=== PATIENT | male | born 1950 | race Caucasian/White ===

== ENCOUNTER 2016-10-02 14:38 | Emergency (ER) | payer OTHER ==
[~2016-10-02] VITALS: Ht 175.3 cm; Wt 94.0 kg
[~2016-10-02 14:38] MED LIST: AMOX1TAB10 PO; AMOX1TAB67 PO; AZIT250T94 PO; CIPR500T4 PO; GUAI118L22 PO; HYDR-3498 PO; HYDR-902 PO; IBUP800T25 PO; LOPE2CAP PO; METF500T4 PO; NAPR-260 PO; PEN500 PO; PRED20TA PO
[2016-10-02 14:41] VITALS: Ht 175.3 cm; Wt 94.0 kg
[2016-10-02] MEDS ORDERED: TRAM50TA2 PO (14:59)
[2016-10-02] MEDS ORDERED: IBUP-1542 PO (14:59)
--- NOTE | 2016-10-02 15:02 | ERD ---
ER Documentation Chief Complaint Date/Time DATE: 10/02/16 TIME: 15:01 Chief Complaint rt elbow pain x 3 weeks HPI 65-year-old male complains of right elbow pain for last 3 weeks. Started after lifting. He had minimal pain after the event but it has slowly progressed. Is on the medial aspect of his right elbow. There is no fevers, redness, restricted range of motion weakness per ROS All systems reviewed and are negative except as per history of present illness. Medications Home Meds Active Scripts Tramadol HCl (Tramadol HCl) 50 Mg Tablet, 50 MG PO Q4 Y for PAIN, #16 TAB Prov:INDRA MARTINEZ MD 10/02/16 Ibuprofen* (Motrin*) 600 Mg Tab, 600 MG PO Q6, #20 TAB Prov:INDRA MARTINEZ MD 10/02/16 Amoxicillin/Potassium Clav (Amox-Clav 875-125 mg Tablet) 875-125 mg Tab, 1 TAB PO BID for 7 Days, #14 TAB Prov:MARILYNN HIRSCH PA-C 12/29/15 Hydrocodone/Acetaminophen ([place] 10-325 Tablet) 1 Each Tablet, 1 TAB PO Q6H Y for PAIN, #12 TAB Prov:MARILYNN HIRSCH PA-C 12/29/15 Ibuprofen* (Motrin*) 800 Mg Tab, 800 MG PO Q6, #30 TAB Prov:MARILYNN HIRSCH PA-C 12/29/15 Ciprofloxacin Hcl* (Ciprofloxacin Hcl*) 500 Mg Tablet, 500 MG PO BID for 7 Days , TAB 0 Refills Prov:POLY AGUILAR PA-C 10/05/15 Loperamide Hcl* (Imodium*) 2 Mg Capsule, 2 MG PO .AFTER EA LOOSE BM Y for DIARRHEA for 5 Days, #10 TAB 0 Refills Prov:POLY AGUILAR PA-C 10/05/15 Amoxicillin-Clavulanate K* (Augmentin*) 500 Mg Tab, 500 MG PO BID for 7 Days, TAB Prov:TANJA RIVERA PA-C 06/25/15 Guaifenesin/Codeine Phosphate (CHERATUSSIN AC SYRUP) 118 Ml Liquid, 10 ML PO Q6H Y for COUGH, #118 ML Prov:CAREY MOLINA NP 06/14/15 Azithromycin* (Zithromax*) 250 Mg Tablet, 250 MG PO .MeryPACK DIRECTED, #6 TAB TAKE 500 MG (2 TABS) THE FIRST DAY THEN 250 MG (1 TAB) DAYS 2-5 Prov:GREGORIA PEREZ MD 06/07/15 Prednisone* (Prednisone*) 20 Mg Tab, 60 MG PO DAILY for 5 Days, TAB Prov:GREGORIA PEREZ MD 06/07/15 Ibuprofen* (Motrin*) 800 Mg Tab, 800 MG PO Q6, #30 TAB Prov:JOHN FERRO DO 04/22/15 Penicillin V Potassium* (Penicillin V K*) 500 Mg Tab, 500 MG PO QID for 10 Days , TAB Prov:JOHN FERRO DO 04/22/15 Hydrocodone Bit-Acetaminophen* ([place]*) 5-325 Mg Tab, 1 TAB PO Q6 Y for PAIN, # 10 TAB Prov:BRYAN HURD. 01/25/15 Naproxen* (Naprosyn*) 500 Mg Tablet, 500 MG PO BID Y for PAIN AND/OR INFLAMMATION, #20 TAB Prov:BRYAN HURD 01/25/15 Reported Medications Metformin Hcl* (Metformin Hcl*) 500 Mg Tablet, 500 MG PO WITH BREAKFAST, TAB 06/29/14 Allergies Allergies: Coded Allergies: No Known Allergy (Unverified , 12/29/15) PMhx/Soc Medical and Surgical Hx: pt denies Medical Hx History of Surgery: Yes (left wrist) Anesthesia Reaction: No Hx Neurological Disorder: No Hx Respiratory Disorders: No Hx Cardiac Disorders: No Hx Psychiatric Problems: No Hx Miscellaneous Medical Probl: No Hx Alcohol Use: No Hx Substance Use: No Hx Tobacco Use: No Smoking Status: Never smoker Physical Exam Vitals Vital Signs Date Time Temp Pulse Resp B/P Pulse Ox O2 Delivery O2 Flow Rate FiO2 10/02/16 14:41 98.1 67 18 164/84 98 Physical Exam Const: [] Alert, not ill-appearing. Head: Atraumatic Eyes: Normal Conjunctiva ENT: Normal External Ears, Nose and Mouth. Neck: Full range of motion..~ No meningismus. Resp: Clear to auscultation bilaterally Cardio: Regular rate and rhythm, no murmurs Abd: Soft, non tender, non distended. Normal bowel sounds Skin: No petechiae or rashes Back: No midline or flank tenderness Ext: No cyanosis, or edema. Tenderness on the medial epicondyle of the right elbow. No warmth, erythema or effusion. No deformities. Right upper extremity is neurovascular intact. Neur: Awake and alert Psych: Normal Mood and Affect Procedures/MDM Patient declines any x-ray as he feels it is not broken. He has signs and symptoms of likely tendinitis or strain or medial epicondylitis. Patient is placed in a right elbow Stanley bandage and will be treated with tramadol ibuprofen instructions for ice. He is advised to seek an orthopedist for persistent pain despite 1 week of treatment. Return sooner for worsening symptoms. Mechanism history and exam does not suggest fracture, osteomyelitis, septic arthritis, deficits. Departure Diagnosis: Primary Impression: Elbow pain Laterality: right Qualified Code: M25.521 - Right elbow pain Condition: Stable Patient Instructions: Sprain Elbow, Tendonitis Referrals: PASTOR BOLAÑOS MD Additional Instructions: Apply ice at home. Recheck for fevers, redness, new worsening symptoms. See orthopedist or primary doctor for persistent pain despite 1 week rest. INDRA MARTINEZ MD Oct 02, 2016 15:02
== END 2016-10-02 15:15 | disposition home or self-care (01) ==
LOC: FTE 14:38
DX: M25.521 Pain in right elbow (principal); Z79.84 Long term (current) use of oral hypoglycemic drugs
CPT/HCPCS: 99283

== ENCOUNTER 2017-04-24 08:50 | Emergency (ER) | END 2017-04-24 10:30 | disposition home or self-care (01) ==

== ENCOUNTER 2017-12-17 07:04 | Emergency (ER) | END 2017-12-17 08:45 | disposition home or self-care (01) ==

== ENCOUNTER 2018-02-11 07:53 | Emergency (ER) | END 2018-02-11 08:30 | disposition home or self-care (01) ==

== ENCOUNTER 2018-07-15 12:41 | Emergency (ER) | payer OTHER ==
[~2018-07-15] VITALS: Ht 170.2 cm; Wt 91.0 kg
[~2018-07-15 12:41] MED LIST changes: +AZIT250T PO; -AZIT250T94 PO; +CETI10CA PO; +CLIN300C10 PO; +FAMO-96 PO; +GUAI5SYR2 PO; +HYDR-3980 PO; +HYDR-4011 PO; -HYDR-902 PO; +IBUP-1542 PO; -IBUP800T25 PO; +IBUP800T48 PO; +METF500T24 PO; -METF500T4 PO; -NAPR-260 PO; +NAPR-985 PO; -PEN500 PO; +PENI500T PO; +TRAM50TA2 PO
[2018-07-15 12:54] VITALS: BP 143/78; PULSE 92; RESP 20; Ht 170.2 cm; Wt 91.0 kg
[2018-07-15] MEDS ORDERED: KETOROLAC 30 MG INJ IM STA (15:37)
[2018-07-15] MEDS ORDERED: TRAM50TA2 PO (16:45)
[2018-07-15] MEDS ORDERED: IBUP-1542 PO (16:45)
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
== END 2018-07-15 16:52 | disposition home or self-care (01) ==
LOC: FTE 12:41
DX: S33.5XXA Sprain of ligaments of lumbar spine, initial encounter (principal); V49.40XA Driver injured in collision with unspecified motor vehicles in traffic accident, initial encounter; Z79.84 Long term (current) use of oral hypoglycemic drugs
CPT/HCPCS: 72040; 72100; 96372; 99284; J1885

== ENCOUNTER 2018-07-22 04:55 | Emergency (ER) | payer OTHER ==
[~2018-07-22] VITALS: Wt 91.4 kg
[2018-07-22 04:59] VITALS: RESP 18
[2018-07-22] MEDS ORDERED: ACETAMINOPHEN 500 MG TAB PO STA (07:54)
[2018-07-22] MEDS ORDERED: AMOX500C2 PO (07:57)
--- NOTE | 2018-07-22 07:59 | ERD ---
ER Documentation Chief Complaint Chief Complaint ST, DOVE, BILAT EAR PAIN X'S 3 DAYS HPI 67-year-old male is here complaining of sore throat bilateral ear pain with headache for 3 days. Has been taking Motrin but continues to have pain and pain with swallowing. No fever. No cough. No nausea or vomiting. No chest pain palpitations or shortness of breath. ROS All systems reviewed and are negative except as per history of present illness. Medications Home Meds Active Scripts Amoxicillin* (Amoxicillin*) 500 Mg Cap, 500 MG PO BID for 7 Days, CAP Prov:BRIANA DUDLEY PA-C 07/22/18 Tramadol HCl (Tramadol HCl) 50 Mg Tablet, 50 MG PO Q4 PRN for PAIN, #15 TAB Prov:INDRA MARTINEZ MD 07/15/18 Ibuprofen* (Motrin*) 600 Mg Tab, 600 MG PO Q6, #20 TAB Prov:INDRA MARTINEZ MD 07/15/18 Clindamycin Hcl* (Clindamycin Hcl*) 300 Mg Capsule, 300 MG PO TID for 10 Days, CAP Prov:RIKY LR 02/11/18 Hydrocodone/Acetaminophen ([place] 5-325 Tablet) 1 Each Tablet, 1 TAB PO Q6H PRN for PAIN, #20 TAB Prov:RIKY LR 02/11/18 Hydrocodone/Acetaminophen ([place] 5-325 Tablet) 1 Each Tablet, 1 TAB PO Q6H PRN for PAIN, #20 TAB Prov:KIRAN PACHECO 12/17/17 Famotidine* (Pepcid*) 20 Mg Tablet, 20 MG PO DAILY for 30 Days, TAB Prov:PASKIRAN LAI 12/17/17 Naproxen* (Naprosyn*) 500 Mg Tablet, 500 MG PO BID PRN for PAIN AND/OR INFLAMMATION, #30 TAB Prov:PASILAKIRAN JACOBS 12/17/17 Cetirizine Hcl* (Zyrtec*) 10 Mg Capsule, 10 MG PO DAILY, #14 TAB.CHEW Prov:MARILYNN HIRSCH PA-C 04/24/17 Guaifenesin-Dextromethorphan* (Robitussin* DM) 100MG/10MG/5ML Syrup, 10 ML PO Q6H PRN for COUGH for 5 Days, ML Prov:MARILYNN HIRSCHC 04/24/17 Naproxen* (Naprosyn*) 500 Mg Tablet, 500 MG PO BID PRN for PAIN AND/OR INFLAMMATION, #30 TAB Prov:MARILYNN HIRSCHC 04/24/17 Amoxicillin/Potassium Clav (Amox-Clav 875-125 mg Tablet) 875-125 mg Tab, 1 TAB PO BID for 10 Days, #14 TAB Prov:MARILYNN HIRSCHC 04/24/17 Tramadol HCl (Tramadol HCl) 50 Mg Tablet, 50 MG PO Q4 PRN for PAIN, #16 TAB Prov:INDRA MARTINEZ MD 10/02/16 Ibuprofen* (Motrin*) 600 Mg Tab, 600 MG PO Q6, #20 TAB Prov:INDRA MARTINEZ MD 10/02/16 Amoxicillin/Potassium Clav (Amox-Clav 875-125 mg Tablet) 875-125 mg Tab, 1 TAB PO BID for 7 Days, #14 TAB Prov:MARILYNN HIRSCHC 12/29/15 Hydrocodone/Acetaminophen ([place] 10-325 Tablet) 1 Each Tablet, 1 TAB PO Q6H PRN for PAIN, #12 TAB Prov:MARILYNN HIRSCHC 12/29/15 Ibuprofen* (Motrin*) 800 Mg Tab, 800 MG PO Q6, #30 TAB Prov:MARILYNN HIRSCHC 12/29/15 Ciprofloxacin Hcl* (Ciprofloxacin Hcl*) 500 Mg Tablet, 500 MG PO BID for 7 Days, TAB 0 Refills Prov:POLY AGUILAR PA-C 10/05/15 Loperamide Hcl* (Imodium*) 2 Mg Capsule, 2 MG PO .AFTER EA LOOSE BM PRN for DIARRHEA for 5 Days, #10 TAB 0 Refills Prov:POLY AGUILAR PA-C 10/05/15 Amoxicillin-Clavulanate K* (Augmentin*) 500 Mg Tab, 500 MG PO BID for 7 Days, TAB Prov:TANJA RIVERA PA-C 06/25/15 Guaifenesin/Codeine Phosphate (CHERATUSSIN AC SYRUP) 118 Ml Liquid, 10 ML PO Q6H PRN for COUGH, #118 ML Prov:CAREY MOLINA NP 06/14/15 Azithromycin* (Zithromax*) 250 Mg Tablet, 250 MG PO .ZPACK DIRECTED, #6 TAB TAKE 500 MG (2 TABS) THE FIRST DAY THEN 250 MG (1 TAB) DAYS 2-5 Prov:GREGORIA PEREZ MD 06/07/15 Prednisone* (Prednisone*) 20 Mg Tab, 60 MG PO DAILY for 5 Days, TAB Prov:GREGORIA PEREZ MD 06/07/15 Ibuprofen* (Motrin*) 800 Mg Tab, 800 MG PO Q6, #30 TAB Prov:JOHN FERRO DO 04/22/15 Penicillin V Potassium* (Penicillin V K*) 500 Mg Tab, 500 MG PO QID for 10 Days, TAB Prov:JOHN FERRO DO 04/22/15 Hydrocodone Bit-Acetaminophen* ([place]*) 5-325 Mg Tab, 1 TAB PO Q6 PRN for PAIN, #10 TAB Prov:BRYAN HURD. 01/25/15 Naproxen* (Naprosyn*) 500 Mg Tablet, 500 MG PO BID PRN for PAIN AND/OR INFLAMMATION, #20 TAB Prov:BRYAN HURD. 01/25/15 Reported Medications Metformin Hcl* (Metformin Hcl*) 500 Mg Tablet, 500 MG PO WITH BREAKFAST, TAB 06/29/14 Allergies Allergies: Coded Allergies: No Known Allergy (Unverified , 12/29/15) PMhx/Soc History of Surgery: Yes (LEFT WRIST SX) Anesthesia Reaction: No Hx Neurological Disorder: No Hx Respiratory Disorders: No Hx Cardiac Disorders: No Hx Psychiatric Problems: No Hx Miscellaneous Medical Probl: No Hx Alcohol Use: No Hx Substance Use: No Hx Tobacco Use: No Smoking Status: Never smoker FmHx Family History: diabetes Physical Exam Vitals Vital Signs Date Temp Pulse Resp B/P (MAP) Pulse Ox O2 O2 Flow FiO2 Time Delivery Rate 07/22/18 97.7 78 18 169/81 98 04:59 (110) Physical Exam INITIAL VITAL SIGNS: Reviewed by me GENERAL: Awake, alert and oriented x 4, well appearing, nontoxic, speaking in full sentences. No acute distress HEAD: Atraumatic NECK: Supple. No masses. Full range of motion. No meningismus. No midline tenderness. EYES: EOMI. PERRL. EAR: No tenderness over the mastoids bilaterally. No exudates in the canals. TMs nonerythematous. NOSE: Normal nose. THROAT: Bilateral tonsillar erythema and edema, no exudates, uvula midline, no kissing tonsils RESPIRATORY: Clear to auscultation bilaterally. Symmetric chest wall rise. No wheezing or rales. No accessory muscle use. CV: Regular rate and rhythm. No murmurs, rubs, or gallops. Results 24 hrs Current Medications Medications Dose Sig/Adan Start Time Status Last (Trade) Ordered Route PRN Stop Time Admin Dose Reason Admin 1,000 mg ONCE STAT 07/22/18 DC Acetaminophen PO 07:54 (Tylenol 07/22/18 07:55 Tab) Procedures/MDM Patient presents with sore throat. He is afebrile. He does have red swollen tonsils but no clear exudates. Patient is diabetic. Prescription for amoxicillin given. He was given Tylenol here as well. Patient counseled regarding my diagnostic impression and care plan. Prior to discharge all questions answered. Pt agrees with treatment plan and understands strict return precautions. Pt is instructed to follow up with primary care provider within 24- 48 hours. Precautionary instructions provided including instructions to return to the ER if not improving or for any worsening or changing symptoms or concerns. Departure Diagnosis: Primary Impression: Pharyngitis Condition: Stable Patient Instructions: Pharyngitis, Strep (Presumed) Additional Instructions: Call your primary care doctor TOMORROW for an appointment during the next 1-2 days.See the doctor sooner or return here if your condition worsens before your appointment time. BRIANA DUDLEY PA-C Jul 22, 2018 07:59
[2018-07-22 08:28] VITALS: BP 151/86; PULSE 76
== END 2018-07-22 08:29 | disposition home or self-care (01) ==
LOC: FTE 04:55
DX: J02.9 Acute pharyngitis, unspecified (principal); Z79.84 Long term (current) use of oral hypoglycemic drugs
CPT/HCPCS: 99283